=== PATIENT | female | born 1985 | race Caucasian/White ===

== ENCOUNTER 2016-09-30 17:37 | Emergency (ER) | payer BC, OTHER ==
[~2016-09-30] VITALS: Ht 165.1 cm; Wt 56.7 kg
[~2016-09-30 17:37] MED LIST: AUGMENTIN 875875 MG PO; IBUPROFEN 600600 M1 PO
[2016-09-30 17:45] VITALS: BP 117/86
[2016-09-30] MEDS ORDERED: IBUPROFEN 600600 M1 PO ×2 (18:10→18:12)
[2016-09-30] MEDS ORDERED: TESSALON PERLE100 MG PO (18:12)
== END 2016-09-30 18:19 | disposition home or self-care (01) ==
LOC: ER 17:37
DX: J06.9 Acute upper respiratory infection, unspecified (principal)